=== PATIENT | female | born 1960 | race Caucasian/White ===

== ENCOUNTER → 2019-12-02 10:51 | Outpatient (BNVA) | payer MEDICAID, SELFPAY | PROVIDERS: Family Provider Nurse Practitioner Family; PCP Specialist; Visit Provider Nurse Practitioner Family | DX: R07.89 Other chest pain (principal); J43.8 Other emphysema; M25.512 Pain in left shoulder | CPT/HCPCS: 71046; 73030; 81001 ==

== ENCOUNTER 2019-12-23 08:28 | Outpatient (CLI) | payer MEDICAID, SELFPAY ==
--- NOTE | 2019-12-23 09:00 | CT_ITS ---
WS: [id number] CT CHEST WITH INTRAVENOUS CONTRAST HISTORY: care home smoker- chest mass TECHNIQUE: Contiguous 5 mm axial imaging performed on the thorax. Coronal and sagittal reformats are submitted. All CT scans at [facility] use at least one of these dose optimization techniq ues: automated exposure control; mA and/or kV adjustment per patient size (includes targeted exams wh ere dose is matched to clinical indication); or iterative reconstruction. CONTRAST: Omnipaque 300; 95 mL IV. DLP: 357.62 mGy.cm COMPARISON: Chest radiograph 12/02/2019 Lungs and central airway: Moderate pulmonary hyperexpansion with changes of emphysema. There is a lar ge bulla at the RIGHT lung base. No pneumonia or mass. Interstitial thickening is probably related to chronic smoking history. Pleura: Normal. No pleural effusion. Heart and pericardium: Normal size heart. No pericardial effusion. Mediastinum and ravinder: No mediastinum or hilar adenopathy. Vessels: Mild atherosclerosis aorta. Pulmonary artery size is equal to the aorta. Chest wall and lower neck: No soft tissue masses. Upper abdomen: Small hiatal hernia. 2.6 cm simple cyst upper pole RIGHT kidney. Smaller incompletely visualized hypodensity in the upper pole the LEFT kidney. Osseous structures: Thoracic spondylosis with increased kyphosis. CT/CT chest w con* [id number] IMPRESSION: 1. Moderately severe emphysema. 2. No pulmonary mass or nodule. 3. Small hiatal hernia. 4. Simple cyst RIGHT kidney.
[2019-12-23] MEDS: iohexol 300 mg/mL 100 mL Btl IV (09:03)
== END 2019-12-23 08:29 | disposition home or self-care (01) ==
PROVIDERS: Family Provider Nurse Practitioner Family; PCP Specialist; Visit Provider Nurse Practitioner Family
DX: R22.2 Localized swelling, mass and lump, trunk (principal); F17.210 Nicotine dependence, cigarettes, uncomplicated; J43.9 Emphysema, unspecified; K44.9 Diaphragmatic hernia without obstruction or gangrene; N28.1 Cyst of kidney, acquired
CPT/HCPCS: 71260

== ENCOUNTER → 2021-03-22 11:46 | Outpatient (BNVA) | payer MEDICAID, SELFPAY | PROVIDERS: Family Provider Nurse Practitioner Family; PCP Nurse Practitioner Family; Visit Provider Nurse Practitioner Family | DX: E55.9 Vitamin D deficiency, unspecified (principal); R53.83 Other fatigue; J44.9 Chronic obstructive pulmonary disease, unspecified; Z79.899 Other long term (current) drug therapy; Z13.6 Encounter for screening for cardiovascular disorders; Z12.31 Encounter for screening mammogram for malignant neoplasm of breast | CPT/HCPCS: 80053; 80061; 81003; 82306; 83036; 84443; 85025 ==